=== PATIENT | male | born 1945 | race Caucasian/White ===

== ENCOUNTER 2022-12-21 17:25 | Emergency (ER) | payer MEDICARE, SELFPAY ==
[2022-12-21 17:26] VITALS: BP 132/79; BP 142/64; PULSE 64; PULSE 68; RESP 18; TEMP 36.2; O2SAT 92; O2SAT 95; BMI 45.8
--- NOTE | 2022-12-21 17:39 | ED.VIS.FALL ---
HPI HPI - Fall History of Present Illness Chief Complaint: Fall Detail of Chief Complaint: Fall with injury to her right leg Informant: patient Narrative Narrative: Patient presents to the emergency department after sustaining a fall and injuring his right leg today. Patient states that he had gotten out of his car and was standing when his right knee gave out and he fell injuring his right leg. Patient unable to bear weight afterwards. He braced himself with his right elbow. He denies striking his head or loss of consciousness. He denies neck pain or headache. 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 PFSH PFSH Allergy/AdvReac Type Severity Reaction Status Date / Time atenolol Allergy Intermediate HYPOTENSION Verified 12/21/22 17:30 glimepiride Allergy Intermediate Rash Verified 12/21/22 17:30 morphine Allergy Intermediate HALLUCINATI Verified 12/21/22 17:30 ONS [id number] Reductase AdvReac Mild Other Verified 12/21/22 17:30 Inhibitor Social History Smoking Status: Never smoker ROS ROS ED Review of Systems ROS Unobtainable: other Constitutional Constitutional ED: Reports lethargy; Denies chills, fever(s), sweats or weight loss Eyes Eyes: Denies blurry vision, change in vision or diplopia ENT ENT ED: Denies rhinorrhea or sore throat Cardiovascular Cardiovascular: Denies chest pain, orthopnea or racing heartbeat Respiratory/Chest Respiratory/Chest: Denies cough, dyspnea, dyspnea on exertion, orthopnea or sputum Gastrointestinal Gastrointestinal: Denies abdominal pain, diarrhea, nausea or vomiting Genitourinary Genitourinary ED: Denies dysuria, hematuria or urinary frequency Musculoskeletal Musculoskeletal: Reports other Details: Right lower extremity-patient holds the knee flexed. Patient has tenderness to the proximal tibia diffusely with some soft tissue swelling. Patient has some tenderness about the right ankle. He is neurovascular intact with normal sensation and normal pulses. No broken skin noted. Right elbow-patient has superficial abrasions over the olecranon with no bony tenderness on exam. He has normal range of motion. He is neurovascular intact. ; Denies arthralgias, back pain, myalgias or neck pain Integumentary Denies abscess, Abrasions or rash Neurologic Neurologic: Denies headache(s) or weakness Psychiatric Psychiatric: Denies anxiety, depression or suicidal thoughts Endocrine Endocrinology: Denies polydipsia, polyphagia or polyuria Hematologic/Lymphatic Hematologic/Lymphatic: Denies easy bleeding, easy bruising or lymphadenopathy Allergic/Immunologic Allergic/Immunologic ED: Denies mouth swelling, tongue swelling or urticaria EXAM Physical Exam Const Vital Signs: 12/21/22 17:26 12/21/22 17:26 12/21/22 21:53 Temperature 97.1 F L Temperature Source Temporal Pulse Rate 68 64 79 Respiratory Rate 18 18 15 Blood Pressure 142/64 H 132/79 H 115/68 Blood Pressure Mean 90 96 83 Pulse Ox 95 92 96 Oxygen Delivery Method Room Air Room Air Room Air 12/21/22 22:11 Temperature 97.1 F L Temperature Source Pulse Rate 79 Respiratory Rate 15 Blood Pressure 115/68 Blood Pressure Mean 83 Pulse Ox 96 Oxygen Delivery Method MDM MDM MDM Narrative Medical decision making narrative: patient presents with a fall from standing with injury to the right leg. No external evidence of trauma to his head. He has a GCS of 15. He has no neck pain. IV line was established. Initially he did not want thing for pain. CBC with differential obtained showed a white count 7.4 with hemoglobin of 15.9 and platelet count of 159. Chemistries unremarkable. X-rays of the right tib-fib obtained showed a fracture of the proximal tibia just distal to the prosthesis. Discussed results with the patient. He wants to be transferred to [facility] where he had his initial surgery with his orthopedic surgeon Dr. Shah. We will contact [facility] to arrange transfer. Discussed case with patient's orthopedic surgeon who recommended knee immobilizer and they would be happy to see them transferred to their emergency department. Clinically patient will be able to go home as he is large individual and will be unable to ambulate using crutches. Will likely require medical admission. Lab Data Attestation: I reviewed the patient's lab results. Labs: Laboratory Results - last 24 hr 12/21/22 18:00 WBC 7.4 RBC 5.64 Hgb 15.9 Hct 47.2 MCV 83.7 MCH 28.2 MCHC 33.7 RDW Std Deviation 41.3 RDW Coeff of Ruth 13.4 Plt Count 159 MPV 10.3 Immature Gran % (Auto) 0.400 Neut % (Auto) 69.9 Lymph % (Auto) 19.0 [place] % (Auto) 7.7 Eos % (Auto) 2.6 Baso % (Auto) 0.4 Absolute Neuts (auto) 5.2 Absolute Lymphs (auto) 1.41 Nucleated RBC % 0 Sodium 141 Potassium 3.8 Chloride 105 Carbon Dioxide 29.0 Anion Gap 7 BUN 30 H Creatinine 1.47 H Estim Creat Clear Calc 46.19 Est GFR (MDRD) Af Amer 60 Est GFR (MDRD) Non-Af 49 L BUN/Creatinine Ratio 20.4 H Glucose 124 H Calcium 9.0 Radiography Diagnostic Testing: Clinical Impression(s) from Imaging Studies Tibia/Fibula X-Ray 12/21/22 18:10 IMPRESSION: Acute nondisplaced oblique fracture of the proximal metaphysis of the tibia. Electronically Signed: Jerod Lomeli MD at 18:35 EST Reading Location ID and State: [employer] , Service support , Brain CT 12/21/22 19:12 IMPRESSION: Normal unenhanced CT scan of the brain. Electronically Signed: Jerod Lomeli MD at 20:36 EST Reading Location ID and State: [employer] , Service support , Cervical Spine CT 12/21/22 19:12 IMPRESSION: No acute fracture or subluxation. Degenerative disc disease as described above. Electronically Signed: Jerod Lomeli MD at 20:41 EST Reading Location ID and State: [employer] , Service support , Discharge Plan Triage Chief Complaint: Fall Other Complaint: Lower Extremity Injury ED Provider: Dong Moy Dx/Rx/DC Orders Clinical Impression: Fracture of right tibia, Fall, Contusion of elbow, right [facility] Referrals: NOT,DEFINED [Non-Staff] - Disposition Disposition: DC/Tx to Another Type of HCF Discharge Location: [facility] Discharge Date/Time: 12/21/22 22:13
--- NOTE | 2022-12-21 18:10 | RAD_ITS ---
STUDY: X-RAY - RIGHT TIBIA AND FIBULA REASON FOR EXAM: Male, 77 years old. fall TECHNIQUE: 2 view(s) of the tibia and fibula were obtained. COMPARISON: None. FINDINGS: Acute nondisplaced oblique fracture of the proximal metaphysis of the tibia just inferior to the arthroplasty prosthesis. Normal visualized fibula. The soft tissue structures are unremarkable. RAD/Tibia & Fibula 2 Views IMPRESSION: Acute nondisplaced oblique fracture of the proximal metaphysis of the tibia. Electronically Signed: Jerod Lomeli MD at 18:35 EST ,
[2022-12-21 18:15] LABS: Absolute Lymphocyte Count 1.41 X10^3/uL (0.83-4.51); Absolute Neutrophil Count 5.2 X10^3/uL (2.0-7.7); Basophil# 0.03 X10^3/uL; Basophil% 0.4 % (0-1); Eosinophil# 0.19 X10^3/uL; Eosinophils% 2.6 % (0-5); Hematocrit 47.2 % (40-54); Hemoglobin 15.9 g/dL (13.0-16.5); Lymphocyte # 1.41 X10^3/ul (0.83-4.51); Mean Corp Hgb Conc 33.7 g/dL (32-36); Mean Corpuscular Hgb 28.2 pg (27.0-32.0); Mean Corpuscular Volume 83.7 fL (80-94); Mean Platelet Vol. 10.3 fl (6.2-12.0); Monocyte# 0.57 X10^3/uL; Monocyte% 7.7 % (0-10); NRBC Flagged by Analyzer 0 % (0-5); Neutrophil # 5.21 X10^3/uL (2.7-7.7); Neutrophil % 69.9 % (47-70); Platelet Count 159 K/mm3 (150-450); RBC Distribution Width CV 13.4 % (11.6-14.6); RBC Distribution Width SD 41.3 fl (35.1-43.9); Red Blood Count 5.64 M/mm3 (4.6-6.2); White Blood Count 7.4 K/mm3 (4.4-11.0)
[2022-12-21 18:28] LABS: Anion Gap 7 (5-15); BUN 30 mg/dL (7-18); BUN/Creat Ratio 20.4 RATIO (10-20); Chloride 105 mmol/L (98-107); Creatinine, Serum 1.47 mg/dL (0.70-1.30); EST Glomerular Filtration Rate 49 mL/min (>60); Est Glom Filt Rate - Afr Amer 60 mL/min (>60); Estimated Creatinine Clearance 46.19 ml/min; Glucose 124 mg/dL (74-106); Potassium 3.8 mmol/L (3.5-5.1); Sodium Level 141 mmol/L (136-145)
[2022-12-21] MEDS: HYDROmorphone 1 MG/ML Syringe IV ×2 (18:50→22:04)
--- NOTE | 2022-12-21 19:03 | ED.RN ---
PT ACCEPTED BY [facility], ED TO ED. DR CAMPBELL. CALLED PHYSICIANS ETA 2100, ASKED PHYSICIANS TO TRY AND OUTSOURCE.
--- NOTE | 2022-12-21 19:12 | CT_ITS ---
STUDY: CT BRAIN WITHOUT CONTRAST REASON FOR EXAM: Male, 77 years old. fall RADIATION DOSAGE (If Supplied By Facility): CTDIvol = ( 44.99 ) mGy, DLP = ( 846.73 ) mGycm TECHNIQUE: Transaxial CT imaging of the brain was performed without administration of intravenous contrast material. Individualized dose optimization techniques were used for this CT. COMPARISON: No relevant priors. FINDINGS: Normal soft tissue structures. Normal calvarium. Normal size ventricles and extra-axial spaces for the patient''s age. Normal white matter tracts of the cerebral hemispheres. Normal basal ganglia and thalami. Normal brainstem. Normal cerebellum. There is no intracranial hemorrhage. There are no findings of an acute ischemic infarction. Normal visualized paranasal sinuses. CT/Brain/Head without Contrast IMPRESSION: Normal unenhanced CT scan of the brain. Electronically Signed: Jerod Lomeli MD at 20:36 EST ,
--- NOTE | 2022-12-21 19:12 | CT_ITS ---
STUDY: CT CERVICAL SPINE WITHOUT CONTRAST REASON FOR EXAM: Male, 77 years old. fall RADIATION DOSAGE (If Supplied By Facility): CTDIvol = ( 31.76 ) mGy, DLP = ( 787.31 ) mGycm TECHNIQUE: High resolution transaxial imaging was performed without contrast material. Sagittal and coronal images were reconstructed. Individualized dose optimization techniques were used for this CT. COMPARISON: None FINDINGS: Normal craniovertebral junction. There are degenerative changes of the anterior atlantoaxial articulation. Normal odontoid process. Normal cervical lordosis. Normal vertebral bodies and posterior osseous elements. C2-3: Normal endplates. Normal disc height and morphology. Normal central canal and intervertebral neuroforamina. C3-4: Mild broad disc osteophyte complex and bilateral uncovertebral hypertrophy produces mild spinal stenosis and mild bilateral neural foraminal stenosis. C4-5: Mild broad disc osteophyte complex and bilateral uncovertebral hypertrophy produces mild spinal stenosis and mild bilateral neural foraminal stenosis. C5-6: Mild broad disc osteophyte complex produces mild spinal stenosis. No neural foraminal stenosis. C6-7: Normal endplates. Normal disc height and morphology. Normal central canal and intervertebral neuroforamina. C7-T1: Normal endplates. Normal disc height and morphology. Normal central canal and intervertebral neuroforamina. Normal visualized soft tissue structures. CT/Spine Cervical without Contras IMPRESSION: No acute fracture or subluxation. Degenerative disc disease as described above. Electronically Signed: Jerod Lomeli MD at 20:41 EST ,
[2022-12-21 21:53] VITALS: BP 115/68; PULSE 79; RESP 15; O2SAT 96
[2022-12-21 22:11] VITALS: BP 115/68; PULSE 79; RESP 15; TEMP 36.2; O2SAT 96
== END 2022-12-21 22:13 | disposition other institution (70) ==
PROVIDERS: Emergency Provider Emergency Medicine; Visit Provider Emergency Medicine
DX: S82.201A Unspecified fracture of shaft of right tibia, initial encounter for closed fracture (principal); S50.01XA Contusion of right elbow, initial encounter; W19.XXXA Unspecified fall, initial encounter
CPT/HCPCS: 70450; 72125; 73590; 80048; 85025; 96374; 96376; 99285; A4216